=== PATIENT | female | born 1975 | race Caucasian/White ===

== ENCOUNTER 2018-09-20 18:10 | Emergency (ER) | payer BC ==
[~2018-09-20] VITALS: Ht 162.6 cm; Wt 67.8 kg
[2018-09-20 18:14] VITALS: BP 143/78; PULSE 90; RESP 16; Ht 162.6 cm; Wt 67.8 kg
[2018-09-20] MEDS ORDERED: KETOROLAC 60 MG INJ IM STA (18:53)
[2018-09-20] MEDS ORDERED: TRAM50TA2 PO (19:35)
[2018-09-20] MEDS ORDERED: PRED20TA PO (19:35)
[2018-09-20] MEDS ORDERED: IBUP-1542 PO (19:35)
--- NOTE | 2018-09-20 19:40 | ERD ---
ER Documentation Chief Complaint Chief Complaint BACK PAIN AND RIGHT ARM TINGLING HPI This 42-year-old female presents with neck pain radiating to the right arm since this morning. We have started after that sleeping position. She describes numbness and tingling in the fourth and fifth digits of her right hand. She denies any headache, fevers, bowel or bladder incontinence, weakness. ROS All systems reviewed and are negative except as per history of present illness. Medications Home Meds Active Scripts Prednisone* (Prednisone*) 20 Mg Tab, 40 MG PO DAILY for 5 Days, TAB Prov:AMAIRANI JEONG MD 09/20/18 Tramadol HCl (Tramadol HCl) 50 Mg Tablet, 50 MG PO Q4 PRN for PAIN, #16 TAB Prov:AMAIRANI JEONG MD 09/20/18 Ibuprofen* (Motrin*) 600 Mg Tab, 600 MG PO Q6, #30 TAB Prov:AMAIRANI JEONG MD 09/20/18 Allergies Allergies: Coded Allergies: No Known Allergy (Unverified , 09/20/18) PMhx/Soc Medical and Surgical Hx: pt denies Medical Hx, pt denies Surgical Hx Hx Alcohol Use: No Hx Substance Use: No Hx Tobacco Use: No Smoking Status: Never smoker FmHx Family History: No diabetes, No coronary disease, No other Physical Exam Vitals Vital Signs Date Temp Pulse Resp B/P (MAP) Pulse Ox O2 O2 Flow FiO2 Time Delivery Rate 09/20/18 98.2 90 16 143/78 100 18:14 (99) Physical Exam Const: No acute distress Head: Atraumatic Eyes: Normal Conjunctiva ENT: Normal External Ears, Nose and Mouth. Neck: Full range of motion. No meningismus. Tenderness on the right cervical paraspinous muscles with no appreciable pain with passive range of motion of the neck. Resp: Clear to auscultation bilaterally Cardio: Regular rate and rhythm, no murmurs Abd: Soft, non tender, non distended. Normal bowel sounds Skin: No petechiae or rashes Back: No midline or flank tenderness Ext: No cyanosis, or edema Neur: Awake and alert. No appreciable focal neurologic deficits. Normal gait. Psych: Normal Mood and Affect Results 24 hrs Laboratory Tests Test 09/20/18 19:03 POC Beta HCG, Qualitative NEGATIVE Current Medications Medications Dose Sig/Harvey Start Time Status Last (Trade) Ordered Route PRN Stop Time Admin Dose Reason Admin Ketorolac 60 mg ONCE STAT 09/20/18 DC 09/20/18 Tromethamine IM 18:53 19:19 (Toradol) 09/20/18 18:54 Procedures/MDM X-ray C spine 3V Interpreted by me: Bones: No fracture Joints: No dislocation Foreign body: None. Impression-multilevel cervical spondylosis. HCG is negative. Patient was given Toradol for pain. Patient resents with cervical radicular symptoms without evidence of central nervous deficits, signs of infection. She will be treated with ibuprofen, tramadol, short course of prednisone, recommendations for primary care follow-up and possible specialty evaluation for further evaluation for worsening or persistent symptoms. She should otherwise return for chest pain, shortness of breath, fevers, new worsening symptoms. The patient was stable with no new complaints during the ER course. Clinically, there is no current evidence to suggest meningitis, sepsis, acute abdomen, pneumonia, stroke, acute coronary syndrome, pulmonary embolism, aortic dissection or any other emergent condition appearing to require further evaluation or hospitalization. Patient counseled regarding my diagnostic impression and care plan. Prior to discharge all questions answered. Pt agrees with treatment plan and understands strict return precautions. Pt is instructed to follow up with primary care provider within 24-48 hours. Precautionary instructions provided including instructions to return to the ER if not improving or for any worsening or changing symptoms or concerns. Departure Diagnosis: Primary Impression: Cervical radiculitis Condition: Stable Patient Instructions: Radiculopathy, Cervical Additional Instructions: X-ray shows degenerative changes of the cervical spine. Likely pinched nerve due to arthritis or disc. Recommend primary doctor follow-up. May need specialist for further evaluation and treatment for persistent pain. AMAIRANI JEONG MD Sep 20, 2018 19:40
== END 2018-09-20 19:50 | disposition home or self-care (01) ==
LOC: FTE 18:10
DX: M54.12 Radiculopathy, cervical region (principal)
CPT/HCPCS: 72040; 81025; 96372; 99284; J1885

== ENCOUNTER → 2018-10-30 | Outpatient (CLI) | payer BC ==
[~2018-10-30] MED LIST: IBUP-1542 PO; PRED20TA PO; TRAM50TA2 PO
== END | disposition home or self-care (01) ==
LOC: LAB 08:16
PROVIDERS: ATTEND Internal Medicine
DX: R73.03 Prediabetes (principal); E78.5 Hyperlipidemia, unspecified; E55.9 Vitamin D deficiency, unspecified
CPT/HCPCS: 80053; 80061; 82306; 83036; 84436; 84443; 85025

== ENCOUNTER 2019-03-28 11:55 | Emergency (ER) | payer BC ==
[~2019-03-28] VITALS: Ht 152.4 cm; Wt 71.0 kg
[2019-03-28 11:58] VITALS: BP 172/76; PULSE 71; RESP 18; Ht 152.4 cm; Wt 71.0 kg
[2019-03-28] MEDS ORDERED: ONDANSETRON (ODT) 4 MG TAB ODT STA (12:15)
[2019-03-28] MEDS ORDERED: HYDR25TA6 PO (12:17)
[2019-03-28] MEDS ORDERED: NICARDipine HCL 30 MG CAPSULE PO ONE (12:30)
--- NOTE | 2019-03-28 12:56 | ERD ---
ER Documentation Chief Complaint Chief Complaint HTN X 1 WEEK NEW ONSET HPI Patient is a 43-year-old female with a history of migraine headaches who presents with headache and high blood pressure. 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 She has a posterior headache which started 2 days ago and has been worsening. It was gradual in onset. She is under stress recently. She has no fevers, vomiting, or trauma. She said that her systolic blood pressure was [address] Her primary doctor Dr. Rueda. She does not currently take blood pressure medicine. ROS All systems reviewed and are negative except as per history of present illness. Medications Home Meds Active Scripts Hydrochlorothiazide* (Hydrochlorothiazide*) 25 Mg Tab, 25 MG PO DAILY, #30 TAB Prov:ONUR VENTURA MD 03/28/19 Prednisone* (Prednisone*) 20 Mg Tab, 40 MG PO DAILY for 5 Days, TAB Prov:AMAIRANI JEONG MD 09/20/18 Tramadol HCl (Tramadol HCl) 50 Mg Tablet, 50 MG PO Q4 PRN for PAIN, #16 TAB Prov:AMAIRANI JEONG MD 09/20/18 Ibuprofen* (Motrin*) 600 Mg Tab, 600 MG PO Q6, #30 TAB Prov:AMAIRANI JEONG MD 09/20/18 Allergies Allergies: Coded Allergies: No Known Allergy (Unverified , 09/20/18) PMhx/Soc Hx Psychiatric Problems: Yes (ANXIETY) Hx Alcohol Use: No Hx Substance Use: No Hx Tobacco Use: No FmHx Family History: No diabetes Physical Exam Vitals Vital Signs Date Temp Pulse Resp B/P (MAP) Pulse Ox O2 O2 Flow FiO2 Time Delivery Rate 03/28/19 98.1 71 18 172/76 99 11:58 (108) Physical Exam Const: No acute distress Head: Atraumatic Eyes: Normal Conjunctiva ENT: Normal External Ears, Nose and Mouth. Neck: Full range of motion. No meningismus. Resp: Clear to auscultation bilaterally Cardio: Regular rate and rhythm, no murmurs Abd: Soft, non tender, non distended. Normal bowel sounds Skin: No petechiae or rashes Back: No midline or flank tenderness Ext: No cyanosis, or edema Neur: Awake and alert, cranial nerves II to XII intact, strength is 5 out of 5 in all 4 tremors, no slurred speech Psych: Normal Mood and Affect Results 24 hrs Current Medications Medications Dose Sig/Harvey Start Time Status Last (Trade) Ordered Route PRN Stop Time Admin Dose Reason Admin Nicardipine 30 mg ONCE ONCE 03/28/19 DC 03/28/19 HCl PO 12:30 12:23 (Cardene) 03/28/19 12:31 Ondansetron 4 mg ONCE STAT 03/28/19 DC 03/28/19 HCl (Zofran ODT 12:15 12:22 Odt) 03/28/19 12:16 Procedures/MDM Patient is a 43-year-old female who presents with headache. She does have elevated blood pressure as well. I believe her headache is related to the elevated blood pressure. I doubt stroke, intrarenal hemorrhage, or urge cranial mass. I believe the risk of doing a CT scan of the brain with benefits in this case. The patient was given a dose of Cardene in the emergency department and will be given a prescription for hydrochlorthiazide. I did tell her that she needs a follow-up with her primary doctor Dr. Rueda within 1 week to have a repeat blood pressure check as well as to discuss further blood pressure management. Departure Diagnosis: Primary Impression: Hypertension Hypertension type: essential hypertension Qualified Codes: I10 - Essential (primary) hypertension Condition: Fair Patient Instructions: High Blood Pressure (Hypertension) Referrals: RUTHY RUEDA MD (PCP) Additional Instructions: Call your primary care doctor TOMORROW for an appointment during the next 1 WEEK.Tell the unit secretary that you were referred from this facility.See the doctor sooner or return here if your condition worsens before your appointment time. ONUR VENTURA MD Mar 28, 2019 12:56
== END 2019-03-28 12:57 | disposition home or self-care (01) ==
LOC: FTE 11:55
DX: I10 Essential (primary) hypertension (principal)
CPT/HCPCS: 99283

== ENCOUNTER → 2019-04-21 | Outpatient (CLI) | payer BC ==
[~2019-04-21] MED LIST changes: +HYDR25TA6 PO
== END | disposition home or self-care (01) ==
LOC: RAD 09:59
PROVIDERS: ATTEND Internal Medicine
DX: R07.89 Other chest pain (principal)
CPT/HCPCS: 71046

== ENCOUNTER 2019-06-05 08:52 | Emergency (ER) | payer BC ==
[~2019-06-05] VITALS: Ht 162.6 cm; Wt 71.9 kg
[~2019-06-05 08:52] MED LIST changes: +CEPH-443 PO; +LORA-441 PO; +NORE1TAB12 PO; +PARO-37 PO
[2019-06-05 09:02] VITALS: Ht 162.6 cm; Wt 71.9 kg
[2019-06-05] MEDS ORDERED: KETOROLAC 15 MG INJ IV STA (09:45)
[2019-06-05] MEDS ORDERED: SOD CHLORIDE 0.9% 1,000 ML IV STA (09:45)
[2019-06-05] MEDS ORDERED: LORAZEPAM 2 MG INJ IV ONE (10:00)
[2019-06-05] MEDS ORDERED: CEPHALEXIN 500 MG CAP PO ONE (10:30)
[2019-06-05 11:22] VITALS: BP 150/91; PULSE 70; RESP 14
== END 2019-06-05 11:22 | disposition home or self-care (01) ==
LOC: E/R 08:52
DX: I10 Essential (primary) hypertension (principal); N39.0 Urinary tract infection, site not specified
CPT/HCPCS: 36415; 80053; 81001; 81025; 83690; 84484; 85025; 85378; 93005; 96374; 96375; 99284; J1885; J2060; J7030